=== PATIENT | male | born 1950 | race Caucasian/White ===

== ENCOUNTER 2024-04-16 13:14 | Inpatient (IN) | payer MEDICARE, BC, SELFPAY ==
[2024-04-16] VITALS (13 sets, daily range): BP systolic 90–136; BP diastolic 62–90; BMI 29.8; BMI 28.9
--- NOTE | 2024-04-16 06:50 | ED.GENMED ---
History of Present Illness
<Pranav Gonzalez MD, Resident - Last Filed: 04/16/24 10:24>
General
Chief Complaint: Fever
Time Seen by Provider: 04/16/24 06:42
History of Present Illness
History of Present Illness:
71-year-old male with a history of hyperlipidemia, hypertension, DVT presented to the ED with fever and confusion. Reports having fever for the past 3 days and was tested negative for COVID 19 at home. According to his he, woke up shivering
last night and was not coherent. The patient denies chest pain and shortness of breath. He denies cough, congestion, nausea, vomiting but states that his fever reached up to 101 F with chills last night and has experience headaches as well as with
fever. He he admits to having urgency and frequency with urination but denies pain or burning with urination. He reports of ongoing on and off diarrhea.
<Andre Munson MD - Last Filed: 04/16/24 10:24>
General
Source: patient
Exam Limitations: none
Nursing documentation reviewed up to this point in time: agreed with
Past History
<Andre Munson MD - Last Filed: 04/16/24 10:24>
Past History
ED Past Medical History: Asthma, HTN and Hypercholesterolemia
ED Past Surgical History: Orthopedic
Social History
Tobacco: Non-smoker
Alcohol: None
Drug: None
Personal:
Living: with family
Review of Systems
<Pranav Gonzalez MD, Resident - Last Filed: 04/16/24 10:24>
Review of Systems
Constitutional: Reports fever, fatigue and chills
Phy Exam
<Pranav Gonzalez MD, Resident - Last Filed: 04/16/24 10:24>
General Physical Exam
General Presentation: no apparent distress
Cardiovascular Exam
Cardiovascular Exam: regular rate/rhythm and no edema
Pulmonary Exam
Pulmonary Exam: lungs clear and no respiratory distress
Course
<Pranav Gonzalez MD, Resident - Last Filed: 04/16/24 10:24>
Orders/Labs/Results
Orders:
Orders
04/16/24 06:42
Electrocardiogram (*1) Urgent
Reason for Study: Other
Other Reason for Exam: Possible Sepsis
Cardiac Monitoring- Treatment ONCE
IV Insert/Care/Rem.- Treatment PRN
04/16/24 06:43
EKG- Treatment ONCE
04/16/24 06:48
Acetaminophen [Tylenol] 650 mg .ROUTE .STK-MED ONE
04/16/24 06:52
Complete Blood Count/With Diff Urgent
Comprehensive Metabolic Panel Urgent
Lactic Acid Q4H
Comment: ON ICE, CANCEL 2ND ORDER IF FIRST LACTIC ACID LEVEL <2
Urinalysis Reflex To Culture Urgent
Date Specimen was Collected: 04/16/24
Time Specimen was Collected: 06:43
Urine Microscopic Reflex Cult Urgent
Urine Culture Urgent
ANAI Source: U
Specimen Description:
Date Specimen was Collected: 04/16/24
Time Specimen was Collected: 06:43
04/16/24 06:54
Acetaminophen [Tylenol] 650 mg PO NOW STA
04/16/24 06:56
COVID-19 Antigen Urgent
Source: Nasal Swab
04/16/24 07:20
0.9% Sodium Chloride 250 ml [Nss] 250 ml IV BOLUS
04/16/24 07:28
Ondansetron HCl [Zofran] 4 mg PO NOW STA
04/16/24 07:29
Ondansetron Injectable [Zofran] 4 mg .ROUTE .STK-MED ONE
04/16/24 07:30
Ondansetron Injectable [Zofran] 4 mg IV NOW STA
04/16/24 07:58
Straight cath- Treatment ONCE
CR Chest - 2 Views Urgent
Comment:
Reason For Exam: fever/sob
04/16/24 08:00
Lidocaine 2% [Lidocaine Uro-Jet 2%] 1 syringe .ROUTE .STK-MED ONE
04/16/24 08:31
Stool Culture Urgent
ANAI Source: Feces/Stool
Specimen Description:
04/16/24 10:03
0.9% Sodium Chloride 1000 ml [Nss] 1,000 ml IV BOLUS
CefTRIAXone [Rocephin] 1,000 mg IV NOW STA
Abnormal Lab Results
04/16/24
06:52
RBC 4.27 L 10^6/uL
(4.70-6.10)
Hct 37.1 L %
(39.0-52.0)
Abs Immat Gran (auto) 0.1 H 10^3/uL
(0-0.05)
Absolute Lymphs (auto) 0.3 L 10^3/uL
(1.2-3.4)
Immature Gran % 1.1 H %
(0-0.5)
Neutrophils % 91.5 H %
(42.2-75.2)
Lymphocytes % 4.2 L %
(20.5-51.1)
Carbon Dioxide 20 L mmol/L
(22-30)
BUN 36 H mg/dl
(9-20)
Glucose 133 H mg/dl
(70-99)
Total Bilirubin 2.1 H mg/dl
(0.2-1.3)
Alkaline Phosphatase 146 H U/L
(38-126)
Total Protein 6.2 L g/dl
(6.3-8.2)
Urine Ketones Trace A
(Negative)
Ur Occult Blood Reflex 4+ A
(Negative)
Urine Nitrite (Reflex) Positive A
(Negative)
Urine Bilirubin 1+ A
(Negative)
Urine Urobilinogen 2+ A
(Neg - 1+)
Leukocyte Esterase Rfl 2+ A
(Negative)
Urine WBC (Reflex) 40-50 A /HPF
(0-5)
Urine Bacteria (Reflex) Many A
(Negative)
Urine Albumin (Reflex) 2+ A
(Neg - Trace)
04/16/24 06:52
04/16/24 06:52
Vital Signs
Initial and Last Documented VS:
Initial Vital Signs
Temp Pulse Resp BP Pulse Ox
101.9 F H 117 18 135/68 95
04/16/24 06:44 04/16/24 06:44 04/16/24 06:44 04/16/24 06:44 04/16/24 06:44
Last Documented Vital Signs
Temp Pulse Resp BP Pulse Ox
98.9 F 101 18 91/65 92
04/16/24 07:42 04/16/24 10:00 04/16/24 10:00 04/16/24 10:00 04/16/24 10:00
<Andre Munson MD - Last Filed: 04/16/24 10:24>
Orders/Labs/Results
Orders:
Orders
04/16/24 06:42
Electrocardiogram (*1) Urgent
Reason for Study: Other
Other Reason for Exam: Possible Sepsis
Cardiac Monitoring- Treatment ONCE
IV Insert/Care/Rem.- Treatment PRN
04/16/24 06:43
EKG- Treatment ONCE
04/16/24 06:48
Acetaminophen [Tylenol] 650 mg .ROUTE .STK-MED ONE
04/16/24 06:52
Complete Blood Count/With Diff Urgent
Comprehensive Metabolic Panel Urgent
Lactic Acid Q4H
Comment: ON ICE, CANCEL 2ND ORDER IF FIRST LACTIC ACID LEVEL <2
Urinalysis Reflex To Culture Urgent
Date Specimen was Collected: 04/16/24
Time Specimen was Collected: 06:43
Urine Microscopic Reflex Cult Urgent
Urine Culture Urgent
ANAI Source: U
Specimen Description:
Date Specimen was Collected: 04/16/24
Time Specimen was Collected: 06:43
04/16/24 06:54
Acetaminophen [Tylenol] 650 mg PO NOW STA
04/16/24 06:56
COVID-19 Antigen Urgent
Source: Nasal Swab
04/16/24 07:20
0.9% Sodium Chloride 250 ml [Nss] 250 ml IV BOLUS
04/16/24 07:28
Ondansetron HCl [Zofran] 4 mg PO NOW STA
04/16/24 07:29
Ondansetron Injectable [Zofran] 4 mg .ROUTE .STK-MED ONE
04/16/24 07:30
Ondansetron Injectable [Zofran] 4 mg IV NOW STA
04/16/24 07:58
Straight cath- Treatment ONCE
CR Chest - 2 Views Urgent
Comment:
Reason For Exam: fever/sob
04/16/24 08:00
Lidocaine 2% [Lidocaine Uro-Jet 2%] 1 syringe .ROUTE .STK-MED ONE
04/16/24 08:31
Stool Culture Urgent
ANAI Source: Feces/Stool
Specimen Description:
04/16/24 10:03
0.9% Sodium Chloride 1000 ml [Nss] 1,000 ml IV BOLUS
CefTRIAXone [Rocephin] 1,000 mg IV NOW STA
Abnormal Lab Results
04/16/24
06:52
RBC 4.27 L 10^6/uL
(4.70-6.10)
Hct 37.1 L %
(39.0-52.0)
Abs Immat Gran (auto) 0.1 H 10^3/uL
(0-0.05)
Absolute Lymphs (auto) 0.3 L 10^3/uL
(1.2-3.4)
Immature Gran % 1.1 H %
(0-0.5)
Neutrophils % 91.5 H %
(42.2-75.2)
Lymphocytes % 4.2 L %
(20.5-51.1)
Carbon Dioxide 20 L mmol/L
(22-30)
BUN 36 H mg/dl
(9-20)
Glucose 133 H mg/dl
(70-99)
Total Bilirubin 2.1 H mg/dl
(0.2-1.3)
Alkaline Phosphatase 146 H U/L
(38-126)
Total Protein 6.2 L g/dl
(6.3-8.2)
Urine Ketones Trace A
(Negative)
Ur Occult Blood Reflex 4+ A
(Negative)
Urine Nitrite (Reflex) Positive A
(Negative)
Urine Bilirubin 1+ A
(Negative)
Urine Urobilinogen 2+ A
(Neg - 1+)
Leukocyte Esterase Rfl 2+ A
(Negative)
Urine WBC (Reflex) 40-50 A /HPF
(0-5)
Urine Bacteria (Reflex) Many A
(Negative)
Urine Albumin (Reflex) 2+ A
(Neg - Trace)
04/16/24 06:52
04/16/24 06:52
Vital Signs
Initial and Last Documented VS:
Initial Vital Signs
Temp Pulse Resp BP Pulse Ox
101.9 F H 117 18 135/68 95
04/16/24 06:44 04/16/24 06:44 04/16/24 06:44 04/16/24 06:44 04/16/24 06:44
Last Documented Vital Signs
Temp Pulse Resp BP Pulse Ox
98.9 F 101 18 91/65 92
04/16/24 07:42 04/16/24 10:00 04/16/24 10:00 04/16/24 10:00 04/16/24 10:00
<Pranav Gonzalez MD, Resident - Last Filed: 04/16/24 10:24>
*Critical Care Note
Total Time (30-74mins, 75-104mins- exclusive of procedures): Not Applicable
<Pranav Gonzalez MD, Resident - Last Filed: 04/16/24 10:24>
Update Note
Update Note:
74-year-old male presented to the ED with fever and confusion. Patient is oriented to time place and person and is coherent.
Differential diagnosis #1 infection possible UTI #2 sepsis #3 pneumonia
Checking routine labs CBC CMP lactate levels as patient meets SIRS criteria. Checking UA to reflex culture to rule out UTI and COVID test. IV fluids given.
UA positive for infection. Started on IV Rocephin. Plan is to admit the patient with concerns for sepsis as the patient is hypotensive. Lactate is normal.
ED Attending Note
<Andre Munson MD - Last Filed: 04/16/24 10:24>
ED Attending Note
Patient seen and examined by attending physician: Yes
ED Attending Note:
Patient presents to ED secondary to 3-day history of fever, along with decreased appetite and multiple episodes of nonbloody, loose bowel movements. Denies coughing. Denies shortness of breath. Denies cough. Denies headache. Denies neck pain.
Denies abdominal pain. Denies nausea or vomiting. Denies recent change in medications or diet. Denies sick contact. Denies recent travel.
Physical Exam
General: no apparent distress, not acutely ill. febrile
Head: nc/at. eomi
Neck: supple. no meningeal signs.
Heart: s1/s2 regular rate and rhythm, no murmur. equal radial pulses.
Lungs: no acute respiratory distress. clear bilaterally
Abdomen: normal bowel sounds. not tender.
Neuro: alert and oriented. no focal neurological deficits
Skin: no rash
Psychiatric: well kept. interactive and cooperative
Extremities: no edema. no calf tenderness
History and exam consistent with sepsis, likely secondary to urinary tract infection. In light of persistent hypotension, patient will be admitted for further evaluation and treatment, including IV antibiotics and continue IV hydration.
-
Portions of this chart may have been created with voice recognition software.� Occasional wrong word or��sound alike� substitutions may have occurred due to the inherent limitations of voice recognition software.
Discharge Plan
Departure
Patient Disposition: Admit
Date of Disposition: 04/16/24
Time of Disposition: 10:23
Presentation/result/management discussed w/ accepting MD/DO: Hospitalist
Patient with high blood pressure during this ER visit?: No
Discharge Problem:
UTI (urinary tract infection)
Prescriptions:
No Action
multivitamin [Multi-Day] 1 EACH tablet
1 ea PO DAILY
atorvastatin 10 MG tablet
20 mg PO QPM
aspirin 81 MG tablet,delayed release (DR/EC)
81 mg PO DAILY
pantoprazole 40 MG tablet,delayed release (DR/EC)
40 mg PO DAILY
montelukast 10 MG tablet
10 mg PO DAILY
lisinopril 5 MG tablet
5 mg PO DAILY
fluticasone propionate [Aller-Olayinka] 15.8 ML spray,suspension
2 dose NS BID
loratadine [Allerclear] 10 MG tablet
10 mg PO DAILY
cholecalciferol (vitamin D3) [Vitamin D3] 4,000 UNIT capsule
5,000 unit PO DAILY
Referrals:
UNKNOWN - PT NOT,INTERVIEWE [Family Provider] -
Interventions
Interventions:
*Risk Screen - Suicide Last Done: 04/16/24 06:53
*General Assessment Last Done: 04/16/24 06:53
*Neglect/Abuse Screening Last Done: 04/16/24 06:53
ED- Fall Risk Assessment Last Done: 04/16/24 07:19
*ED COVID-19 Vaccine History Last Done: 04/16/24 07:27
ED- Neurological Assessment Last Done: 04/16/24 07:03
ED-Skin Assessment Last Done: 04/16/24 07:20
Discharge Date and Time
Print Language: AZERI
[2024-04-16] MEDS: TYLENOL 650 MG PO ×4 (06:55→20:32)
[2024-04-16 07:07] LABS: % Basophils 0.3 % (0-2); % Eosinophils 0.2 % (0-6); % Immature Granulocytes 1.1 % (0-0.5); % Lymphocytes 4.2 % (20.5-51.1); % Monocytes 2.7 % (1.7-9.3); % Neutrophils 91.5 % (42.2-75.2); Absolute Immature Granulocytes 0.1 10^3/uL (0-0.05); Absolute Lymphocytes 0.3 10^3/uL (1.2-3.4); Absolute Monocytes 0.2 10^3/uL (0.1-0.6); Absolute Neutrophils 5.7 10^3/uL (1.4-6.5); Hematocrit 37.1 % (39.0-52.0); Hemoglobin 13.2 g/dL (13.0-18.0); Mean Corp Hgb Conc. 35.6 g/dL (33.0-37.0); Mean Corpuscular Hgb 30.9 pg (27.0-31.0); Mean Corpuscular Volume 86.9 fL (80.0-94.0); Mean Platelet Volume 9.1 fL (7.4-10.4); Nucleated Red Blood Cells % 0 % (-); Platelet Count 144 10^3/uL (130-400); Red Blood Cell Count 4.27 10^6/uL (4.70-6.10); Red Cell Dist. Width 13.8 % (11.5-14.5); White Blood Cell Count 6.2 10^3/uL (4.8-10.8)
[2024-04-16 07:16] LABS: Lactic Acid 1.9 mmol/L (0.7-2.0)
[2024-04-16 07:17] LABS: ALT (SGPT) 37 U/L (0-50); AST (SGOT) 42 U/L (17-59); Albumin 3.6 g/dl (3.5-5.0); Alkaline Phosphatase 146 U/L (38-126); Blood Urea Nitrogen 36 mg/dl (9-20); Calcium 9.1 mg/dl (8.4-10.2); Carbon Dioxide 20 mmol/L (22-30); Chloride 107 mmol/L (98-107); Estimated Creatinine Clearance 49 ml/min; Glucose 133 mg/dl (70-99); Potassium 3.7 mmol/L (3.5-5.1); Sodium 137 mmol/L (135-145); Total Bilirubin 2.1 mg/dl (0.2-1.3); Total Protein 6.2 g/dl (6.3-8.2); eGFR 58.01
[2024-04-16] MEDS: NSS 250 IV (07:25)
[2024-04-16 07:28] LABS: COVID-19 Antigen Negative (Negative)
[2024-04-16] MEDS: ZOFRAN 4 MG IV (07:32)
[2024-04-16 08:41] LABS: Urine Albumin 2+ (Neg - Trace); Urine Bilirubin 1+ (Negative); Urine Character Slightly Cloudy (Clear); Urine Color Yellow; Urine Glucose Negative (Negative); Urine Ketone Trace (Negative); Urine Leukocyte 2+ (Negative); Urine Nitrite Positive (Negative); Urine Occult Blood 4+ (Negative); Urine Specific Gravity 1.015 (<1.030); Urine Urobilinogen 2+ (Neg - 1+)
[2024-04-16 09:59] LABS: Urine Bacteria Many (Negative); Urine Red Blood Cell 0-2 /HPF (0-2); Urine Squamous Cell 0-2 /LPF (Few); Urine White Cell 40-50 /HPF (0-5)
[2024-04-16] MEDS: ROCEPHIN 1000 MG IV (10:10)
[2024-04-16] MEDS: NSS 1000 IV (10:11)
--- NOTE | 2024-04-16 10:23 | HPS.HSE ---
Addendum entered and electronically signed by Liz Brown MD 04/16/24 13:20:
Mild QT prolongation
monitor on Tele
limit QT prolonging agents as possible
Original Note:
Family Physician
-
Family Physician: INTERVIEWE UNKNOWN - PT NOT
Chief Complaint
-
Fever
History of Present Illness
74 male hypertension hyperlipidemia DVT on Eliquis presents with fevers chills headache urinary urgency frequency intermittent diarrhea past 3 days. Denies dysuria chest pain palpitations shortness of breath coughing sneezing. ED eval notable for
fever 101.9 with associated tachycardia no significant leukocytosis lactic acidosis. Blood pressure low normotensive improved with IV fluid bolus. Urinalysis suggestive of UTI. EKG notes sinus tachycardia with associated QT prolongation. No acute
abn's on chest X-ray.
Medical History
Past Medical History
Past Medical History: Reports Other (As above)
Past Surgical History: Reports Orthopedic
Social History
Tobacco: Non-smoker
Alcohol: None
Drug: None
Personal:
Living: With Family
Employment: Retired
Family History
Family History: Not pertinent (Reviewed)
Allergies / Home Medications
Allergies reflects when Allergies were last updated in [employer] [facility]
Home Medications with original date entered in [employer] [facility]
Allergy/Medication List:
Allergies
Allergy/AdvReac Type Severity Reaction Status Date / Time
No Known Allergies Allergy Verified 07/15/22 10:18
Home Medications
lisinopril 5 mg tablet 5 mg PO DAILY Blood Pressure 09/06/16
loratadine 10 mg tablet (Allerclear) 10 mg PO DAILYPRN PRN allergies 09/06/16
acetaminophen 325 mg tablet (Tylenol) 650 mg PO Q4HPRN PRN fever 04/16/24
apixaban 5 mg tablet (Eliquis) 5 mg PO BID Blood Clot Prevention/Tx 04/16/24
atorvastatin 20 mg tablet 20 mg PO DAILY High Cholesterol 04/16/24
cholecalciferol (vitamin D3) 50 mcg (2,000 unit) tablet (Vitamin D3) 50 mcg PO DAILY Supplement 04/16/24
tamsulosin 0.4 mg capsule 0.4 mg PO DAILY Urinary Issue 04/16/24
therapeutic multivitamin 1 tab PO DAILY Supplement 04/16/24
tramadol 50 mg tablet 50 mg PO Q6HPRN PRN moderate pain 04/16/24
Review of Systems
-
A 12 point ROS was completed and negative except as noted: Yes
Constitutional: Reports Sleep Disturbance (As below)
Physical Exam
Vital Signs
Vital Signs
Temp Pulse Resp BP Pulse Ox
98.9 F 101 18 91/65 92
04/16/24 07:42 04/16/24 10:00 04/16/24 10:00 04/16/24 10:00 04/16/24 10:00
Physical Exam
General: Other (Possible)
Laboratory Results
-
04/16/24 06:52
04/16/24 06:52
Laboratory Results
Lactic Acid Cancelled 04/16/24 10:45
Total Bilirubin 2.1 mg/dl (0.2-1.3) H 04/16/24 06:52
AST 42 U/L (17-59) 04/16/24 06:52
ALT 37 U/L (0-50) 04/16/24 06:52
Alkaline Phosphatase 146 U/L (38-126) H 04/16/24 06:52
Impression/Plan
-
ROS
General: Reports Fever Chills
Neuro: Denies seizure shaking loss of consciousness dizziness vertigo
Psych: denies depression hallucinations confusion manic episodes
Endocrine: Reports polyuria Denies polydipsia polyphagia heat/cold intolerance
HEENT: Denies blindness visual disturbances epistaxis
Pulmonary: denies coughing hemoptysis sneezing sob dyspnea on exertion
Cardiovascular: denies chest pain palpitations leg swelling
Hematology: denies signs symptoms of anemia easy bruising/bleeding
Gastrointestinal: denies nausea vomiting diarrhea constipation hematemesis hematochezia melena
Genito-Urinary: denies retention incontinence dysuria reports urinary urgency frequency
Musculoskeletal: denies joint pain weakness
Dermatology: denies rash laceration bruising
Physical Exam
General: No pallor, cyanosis, or jaundice.
HEENT: Throat clear. PERRLA Normocephalic atraumatic
NECK: Supple. No JVD Carotid Bruits
RESPIRATORY: Lungs clear to auscultation. No crackles wheezes stridor
CVS: S1, S2 sinus tachy. No murmur, rub or gallop.
ABDOMEN: Soft, non-tender. No distension. BS+/normal.
EXTREMITIES: No peripheral cyanosis or edema.
LAWN MOWER REPAIRER: AOx3. No focal deficits.
IMPRESSION:
74 male hypertension hyperlipidemia DVT on Eliquis presents with fevers chills headache urinary urgency frequency intermittent diarrhea past 3 days. Denies dysuria chest pain palpitations shortness of breath coughing sneezing. ED eval notable for
fever 101.9 with associated tachycardia no significant leukocytosis lactic acidosis. Blood pressure low normotensive improved with IV fluid bolus. Urinalysis suggestive of UTI. EKG notes sinus tachycardia with associated QT prolongation. No acute
abn's on chest X-ray.
PLAN:
#Sepsis UTI
Tele admit
cont empiric ceftriaxone
follow urine cx
trend temp
prn Tylenol
#Hx HTN
BP currently low normotensive likely d/t infection as above
hold home lisinopril for now, resume if BP increases
Na restricted diet
#HLD
cont home statin
Low Cholesterol diet
#Hx DVT RLE
Follows regularly with brushing operator outpt every 6 months
cont home Eliquis
dvt ppx Eliquis
gi ppx Famotidine
meds reconciled and resumed as appropriate
Full Code
Discussed with patient and his son Jaison at bedside.
I spent a total of 75 minutes with the patient or on the floor. More than 50% of this time involved counseling and coordination of care.
[2024-04-16] MEDS: ULTRAM 50 MG PO (19:01)
[2024-04-16] MEDS: ELIQUIS 5 MG PO (20:28)
[2024-04-17] MEDS: TYLENOL 650 MG PO ×3 (02:01→18:34)
[2024-04-17 03:39] VITALS: BP 135/86
[2024-04-17 05:53] LABS: Hematocrit 35.8 % (39.0-52.0); Hemoglobin 12.7 g/dL (13.0-18.0); Mean Corp Hgb Conc. 35.5 g/dL (33.0-37.0); Mean Corpuscular Volume 87.3 fL (80.0-94.0); Mean Platelet Volume 9.3 fL (7.4-10.4); Platelet Count 158 10^3/uL (130-400); White Blood Cell Count 9.4 10^3/uL (4.8-10.8)
[2024-04-17 06:16] LABS: Blood Urea Nitrogen 27 mg/dl (9-20); Carbon Dioxide 24 mmol/L (22-30); Chloride 104 mmol/L (98-107); Estimated Creatinine Clearance 58 ml/min; Glucose 108 mg/dl (70-99); Magnesium 1.8 mg/dl (1.6-2.3); Potassium 4.2 mmol/L (3.5-5.1); Sodium 136 mmol/L (135-145); eGFR > 60.00
[2024-04-17 07:00] VITALS: BP 130/84
--- NOTE | 2024-04-17 07:53 | W.PN.HOSP.TC ---
Addendum entered and electronically signed by Liz Brown MD 04/18/24 07:52:
Possible Acute Metabolic Encephalopathy since resolved
Original Note:
Today's Communication/Plan
-
cont abx
stool studies
pain control
abd XR for possible overflow incontinence
follow urine culture
Assessment / Plan
Assessment / Plan
Physical Exam
General: No pallor, cyanosis, or jaundice.
HEENT: Throat clear. PERRLA Normocephalic atraumatic
NECK: Supple. No JVD Carotid Bruits
RESPIRATORY: Lungs clear to auscultation. No crackles wheezes stridor
CVS: S1, S2 sinus tachy. No murmur, rub or gallop.
ABDOMEN: Soft, non-tender. No distension. BS+/normal.
EXTREMITIES: No peripheral cyanosis or edema.
PROTECTIVE SERVICES OFFICER: AOx3. No focal deficits.
IMPRESSION:
74 male hypertension hyperlipidemia DVT on Eliquis presents with fevers chills headache urinary urgency frequency intermittent diarrhea past 3 days. Denies dysuria chest pain palpitations shortness of breath coughing sneezing. ED eval notable for
fever 101.9 with associated tachycardia no significant leukocytosis lactic acidosis. Blood pressure low normotensive improved with IV fluid bolus. Urinalysis suggestive of UTI. EKG notes sinus tachycardia with associated QT prolongation. No acute
abn's on chest X-ray.
PLAN:
#Sepsis UTI
Tele admit
cont empiric ceftriaxone
follow urine cx
trend temp
prn Tylenol
probiotic
#bowel/urinary incontinence
denies numbness/weakness
check abd XR for possible overflow incontinence
stool studies
#Hx HTN
BP currently low normotensive likely d/t infection as above
hold home lisinopril for now, resume if BP increases
Na restricted diet
#HLD
cont home statin
Low Cholesterol diet
#Hx DVT RLE
Follows regularly with pump attendant outpt every 6 months
cont home Eliquis
Mild QT prolongation
monitor on Tele
limit QT prolonging agents as possible
dvt ppx Eliquis
gi ppx Famotidine
meds reconciled and resumed as appropriate
Full Code
Discussed with patient, patient's Ingrid, and his daughter Pete at bedside
I spent a total of 55 minutes with the patient or on the floor. More than 50% of this time involved counseling and coordination of care.
Anticipated Discharge: 24 - 48 hours
Subjective/Interval History
-
Date of Service: April 17, 2024
Reports bowel urinary incontinence. Denies dysuria.
Objective Data
-
Labs:
Laboratory Results
04/17/24
05:35
WBC 9.4
Hgb 12.7 L
Hct 35.8 L
Plt Count 158
Sodium 136
Potassium 4.2
Chloride 104
Carbon Dioxide 24
BUN 27 H
Creatinine 1.1
Glucose 108 H
Calcium 9.0
Vital Signs:
Vital Signs
Temp Pulse Resp BP Pulse Ox
99.4 F 66 19 130/84 98
04/17/24 07:00 04/17/24 07:00 04/17/24 07:00 04/17/24 07:00 04/17/24 07:00
I&O
04/16/24 04/17/24 04/18/24
06:59 06:59 06:59
Intake Total 1660 / 1660
Output Total 320 / 320
Balance 1340 / 1340
[2024-04-17] MEDS: ELIQUIS 5 MG PO ×2 (07:54→20:19)
[2024-04-17] MEDS: PEPCID 20 MG PO (07:54)
[2024-04-17] MEDS: VITAMIN D3 (cholecalciferol) 50 MCG PO (07:54)
[2024-04-17] MEDS: FLOMAX 0.4 MG PO (07:54)
[2024-04-17] MEDS: LIPITOR 20 MG PO (08:00)
[2024-04-17] MEDS: THERAGRAN 1 TABLET PO (08:00)
[2024-04-17] MEDS: STERILE WATER FOR INJECTION 10 ML IV (10:34)
[2024-04-17] MEDS: ROCEPHIN 1000 MG IV (10:34)
[2024-04-17 11:00] VITALS: BP 124/71
[2024-04-17] MEDS: PROTONIX 40 MG PO (13:10)
[2024-04-17] MEDS: TORADOL 15 MG IV (13:11)
[2024-04-17] MEDS: FLORASTOR 250 MG PO (13:11)
--- NOTE | 2024-04-17 13:32 | PN.CDI ---
CDI
- -
CDI:
Physician Documentation Request
Admit Date: 04/16/24 13:14
Dear Doctor Stephanie,
Clinical Indicators:
EMS report, (06:10 - 06:23) [facility] Verbal: Confused
ED report, 'presented to the ED with fever and confusion....According to his he, woke up shivering last night and was not coherent.'
H & P, 'Sepsis UTI'
Based on the above, could you clarify which, if any of the following, is the most likely etiology of the confusion/altered mental status.
Acute Metabolic Encephalopathy
Confusion only
Other, please specify
Use of terms such as suspected, likely, concern for, or probable (associated with a specific diagnosis that is being evaluated, monitored, or treated as if it exists) are acceptable and can be coded in the inpatient setting, when documented at the
time of discharge.
Thank you,
Chloe Dunham RN BSN
CDI Specialist
available via tiger text
Please use your independent medical judgment in providing your response.
[2024-04-17 15:00] VITALS: BP 143/74
--- NOTE | 2024-04-17 15:41 | CM ---
Pt admitted with Sepsis
Met with pt and his at bedside
Pt lives in a in-law suite attached to daughter and son-in-law's home
Independent, driving til recently
DME - hearing aids
SNF - no past hx
HH - [facility] in past
PCP - Had PCP in [place]; plans to obtain new PCP
Pharm - [facility]
CM will follow for d/c planning
Plan - anticipate home no needs when medically ready
[2024-04-17 19:26] VITALS: BP 111/68
[2024-04-17 23:20] VITALS: BP 123/70
[2024-04-18 03:36] VITALS: BP 159/95
[2024-04-18] MEDS: TYLENOL 650 MG PO ×2 (06:00→12:26)
[2024-04-18 06:07] LABS: Hematocrit 35.2 % (39.0-52.0); Hemoglobin 12.6 g/dL (13.0-18.0); Mean Corp Hgb Conc. 35.8 g/dL (33.0-37.0); Mean Corpuscular Hgb 30.4 pg (27.0-31.0); Mean Platelet Volume 9.3 fL (7.4-10.4); Platelet Count 176 10^3/uL (130-400); Red Blood Cell Count 4.14 10^6/uL (4.70-6.10); White Blood Cell Count 9.9 10^3/uL (4.8-10.8)
[2024-04-18 06:31] LABS: Blood Urea Nitrogen 25 mg/dl (9-20); Calcium 8.8 mg/dl (8.4-10.2); Carbon Dioxide 25 mmol/L (22-30); Chloride 103 mmol/L (98-107); Estimated Creatinine Clearance 58 ml/min; Glucose 108 mg/dl (70-99); Magnesium 1.9 mg/dl (1.6-2.3); Phosphorus 2.5 mg/dl (2.5-4.5); Potassium 4.4 mmol/L (3.5-5.1); Sodium 135 mmol/L (135-145); eGFR > 60.00
[2024-04-18 07:00] VITALS: BP 125/82
[2024-04-18] MEDS: PROTONIX 40 MG PO (07:34)
[2024-04-18] MEDS: VITAMIN D3 (cholecalciferol) 50 MCG PO (07:34)
[2024-04-18] MEDS: ELIQUIS 5 MG PO ×2 (07:34→19:40)
[2024-04-18] MEDS: FLOMAX 0.4 MG PO (07:34)
[2024-04-18] MEDS: THERAGRAN 1 TABLET PO (07:34)
[2024-04-18] MEDS: LIPITOR 20 MG PO (07:34)
--- NOTE | 2024-04-18 07:52 | W.PN.HOSP.TC ---
Today's Communication/Plan
-
IV abx switched to PO
pain control
once Fioricet
baclofen
Assessment / Plan
Assessment / Plan
Physical Exam
General: No pallor, cyanosis, or jaundice.
HEENT: Throat clear. PERRLA Normocephalic atraumatic
NECK: Supple. No JVD Carotid Bruits
RESPIRATORY: Lungs clear to auscultation. No crackles wheezes stridor
CVS: S1, S2 sinus tachy. No murmur, rub or gallop.
ABDOMEN: Soft, non-tender. No distension. BS+/normal.
EXTREMITIES: No peripheral cyanosis or edema.
WELDING MACHINE OPERATOR ELECTROSLAG: AOx3. No focal deficits.
IMPRESSION:
74 male hypertension hyperlipidemia DVT on Eliquis presents with fevers chills headache urinary urgency frequency intermittent diarrhea past 3 days. Denies dysuria chest pain palpitations shortness of breath coughing sneezing. ED eval notable for
fever 101.9 with associated tachycardia no significant leukocytosis lactic acidosis. Blood pressure low normotensive improved with IV fluid bolus. Urinalysis suggestive of UTI. EKG notes sinus tachycardia with associated QT prolongation. No acute
abn's on chest X-ray.
PLAN:
#Sepsis UTI
Tele admit
urine cx appreciated E. coli pansensitive
cont empiric ceftriaxone switched to Augmentin
trend temp
prn Tylenol
probiotic
#bowel/urinary incontinence
denies numbness/weakness
checked abd XR for possible overflow incontinence, negative
Low residue diet
incontinence since improved
#Persistent headache with associate neck pain
#Hx cervical DDD has pending outpt appt for epidural
once Fioricet
baclofen started (fall precautions)
checking CT head CTA head/neck
#Hx HTN
BP currently low normotensive likely d/t infection as above
hold home lisinopril for now, resume if BP increases
Na restricted diet
#HLD
cont home statin
Low Cholesterol diet
#Hx DVT RLE
Follows regularly with manager tax outpt every 6 months
cont home Eliquis
Mild QT prolongation
monitor on Tele
limit QT prolonging agents as possible
dvt ppx Eliquis
gi ppx Famotidine
meds reconciled and resumed as appropriate
Full Code
Discussed with patient, patient's Ingrid, and his daughter Pete at bedside
I spent a total of 55 minutes with the patient or on the floor. More than 50% of this time involved counseling and coordination of care.
Anticipated Discharge: 24 - 48 hours
Subjective/Interval History
-
Date of Service: April 18, 2024
Reports improvement in incontinence. Reports feeling well. No diarrhea. Patient/family reported significant headache with associate neck pain (has pending outpatient appt for epidural injection).
Objective Data
-
Labs:
Laboratory Results
04/18/24
05:24
WBC 9.9
Hgb 12.6 L
Hct 35.2 L
Plt Count 176
Sodium 135
Potassium 4.4
Chloride 103
Carbon Dioxide 25
BUN 25 H
Creatinine 1.1
Glucose 108 H
Calcium 8.8
Vital Signs:
Vital Signs
Temp Pulse Resp BP Pulse Ox
97.9 F 93 19 159/95 95
04/18/24 03:36 04/18/24 03:36 04/18/24 03:36 04/18/24 03:36 04/18/24 03:36
I&O
04/17/24 04/18/24 04/19/24
06:59 06:59 06:59
Intake Total 1660 / 1660 840 / 840
Output Total 320 / 320
Balance 1340 / 1340 840 / 840
[2024-04-18] MEDS: FLORASTOR 250 MG PO (08:32)
[2024-04-18] MEDS: STERILE WATER FOR INJECTION 10 ML IV (10:00)
[2024-04-18] MEDS: ROCEPHIN 1000 MG IV (10:00)
[2024-04-18 11:00] VITALS: BP 152/89
--- NOTE | 2024-04-18 12:05 | PTCARENOTE ---
Pt transferred to room 324-1. Pt AAOX3. All belongings with pt. Pt reoriented to staff and environment. Family aware of transfer to new room.
[2024-04-18] MEDS: AUGMENTIN 875 MG/125 MG 1 TABLET PO ×2 (12:26→19:40)
[2024-04-18] MEDS: ULTRAM 50 MG PO (15:28)
[2024-04-18 15:36] VITALS: BP 124/74
[2024-04-18] MEDS: MIRALAX 17 GRAMS PO (17:26)
[2024-04-18] MEDS: LIORESAL 5 MG PO (17:58)
[2024-04-18] MEDS: FIORICET 2 TAB PO (17:58)
[2024-04-18 19:35] VITALS: BP 125/80
[2024-04-18 23:23] VITALS: BP 130/79
[2024-04-19] MEDS: ULTRAM 50 MG PO ×2 (02:55→10:14)
[2024-04-19 03:06] VITALS: BP 144/84
[2024-04-19 06:26] LABS: Hematocrit 37.3 % (39.0-52.0); Hemoglobin 13.1 g/dL (13.0-18.0); Mean Corp Hgb Conc. 35.1 g/dL (33.0-37.0); Mean Corpuscular Hgb 31.1 pg (27.0-31.0); Mean Corpuscular Volume 88.6 fL (80.0-94.0); Mean Platelet Volume 8.9 fL (7.4-10.4); Platelet Count 205 10^3/uL (130-400); Red Blood Cell Count 4.21 10^6/uL (4.70-6.10); Red Cell Dist. Width 14.1 % (11.5-14.5); White Blood Cell Count 9.3 10^3/uL (4.8-10.8)
--- NOTE | 2024-04-19 07:06 | W.PN.HOSP.TC ---
Today's Communication/Plan
-
discharge
Assessment / Plan
Assessment / Plan
Physical Exam
General: No pallor, cyanosis, or jaundice.
HEENT: Throat clear. PERRLA Normocephalic atraumatic
NECK: Supple. No JVD Carotid Bruits
RESPIRATORY: Lungs clear to auscultation. No crackles wheezes stridor
CVS: S1, S2 sinus tachy. No murmur, rub or gallop.
ABDOMEN: Soft, non-tender. No distension. BS+/normal.
EXTREMITIES: No peripheral cyanosis or edema.
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 No focal deficits.
IMPRESSION:
74 male hypertension hyperlipidemia DVT on Eliquis presents with fevers chills headache urinary urgency frequency intermittent diarrhea past 3 days. Denies dysuria chest pain palpitations shortness of breath coughing sneezing. ED eval notable for
fever 101.9 with associated tachycardia no significant leukocytosis lactic acidosis. Blood pressure low normotensive improved with IV fluid bolus. Urinalysis suggestive of UTI. EKG notes sinus tachycardia with associated QT prolongation. No acute
abn's on chest X-ray.
PLAN:
#Sepsis UTI
Tele admit
urine cx appreciated E. coli pansensitive
cont empiric ceftriaxone switched to Augmentin tolerating well, planning for total 7 days abx 04/16-04/22
afebrile >48H no significant leukocytosis
prn Tylenol
probiotic
#bowel/urinary incontinence
denies numbness/weakness
checked abd XR for possible overflow incontinence, negative
Low residue diet
incontinence since improved but now has constipation, laxatives provided
#Persistent headache with associate neck pain
#Hx cervical DDD has pending outpt appt for epidural
once Fioricet
baclofen started (fall precautions)
CT head CTA head/neck appreciated no acute abn's
suspect likely tension headache exacerbated/triggered by chronic neck pain
bengay-like cream started back of neck and b/l corners neck and shoulder
#Hx HTN
BP currently low normotensive likely d/t infection as above
home lisinopril held due to above, BP increasing, ok to resume on discharge
Na restricted diet
#HLD
cont home statin
Low Cholesterol diet
#Hx DVT RLE
Follows regularly with [facility] outpt every 6 months
cont home Eliquis
Mild QT prolongation
monitor on Tele
limit QT prolonging agents as possible
dvt ppx Eliquis
gi ppx Famotidine
meds reconciled and resumed as appropriate
Full Code
Medically stable for discharge home with outpatient follow up recommendations
Discussed with patient, patient's Ingrid, and his daughter Pete at bedside
Total Time Preparing Discharge __50 minutes including examination of the patient, summary of the hospital stay, instructions for continuing care to all relevant caregivers; and preparation of discharge records, prescriptions, and referral
forms if necessary.
Anticipated Discharge: Today
Subjective/Interval History
-
Date of Service: April 19, 2024
Seen and examined at bedside in no acute distress sitting up comfortably in chair. Continues to report constipation and intermittent headaches with associate neck pain (likely tension headache exacerbated/triggered by neck pain). Otherwise patient
reports feeling well, eager to go home. Family Ingrid and daughter Pete present during evaluation.
Objective Data
-
Labs:
Laboratory Results
04/19/24
06:09
WBC 9.3
Hgb 13.1
Hct 37.3 L
Plt Count 205
Sodium Pending
Potassium Pending
Chloride Pending
Carbon Dioxide Pending
BUN Pending
Creatinine Pending
Glucose Pending
Calcium Pending
Vital Signs:
Vital Signs
Temp Pulse Resp BP Pulse Ox
98.3 F 79 16 144/84 98
04/19/24 03:06 04/19/24 03:06 04/19/24 03:06 04/19/24 03:06 04/19/24 03:06
I&O
04/18/24 04/19/24 04/20/24
06:59 06:59 06:59
Intake Total 840 / 840 1140 / 1140
Output Total 100 / 100
Balance 840 / 840 1040 / 1040
[2024-04-19 07:10] LABS: Blood Urea Nitrogen 20 mg/dl (9-20); Carbon Dioxide 26 mmol/L (22-30); Chloride 101 mmol/L (98-107); Estimated Creatinine Clearance 64 ml/min; Glucose 112 mg/dl (70-99); Magnesium 1.9 mg/dl (1.6-2.3); Phosphorus 3.2 mg/dl (2.5-4.5); Potassium 4.4 mmol/L (3.5-5.1); Sodium 137 mmol/L (135-145); eGFR > 60.00
[2024-04-19 07:32] VITALS: BP 130/88
[2024-04-19] MEDS: LIPITOR 20 MG PO (07:39)
[2024-04-19] MEDS: AUGMENTIN 875 MG/125 MG 1 TABLET PO (07:39)
[2024-04-19] MEDS: VITAMIN D3 (cholecalciferol) 50 MCG PO (07:39)
[2024-04-19] MEDS: ELIQUIS 5 MG PO (07:39)
[2024-04-19] MEDS: LIORESAL 5 MG PO ×2 (07:39→15:50)
[2024-04-19] MEDS: FLOMAX 0.4 MG PO (07:39)
[2024-04-19] MEDS: FLORASTOR 250 MG PO (07:39)
[2024-04-19] MEDS: PROTONIX 40 MG PO (07:39)
[2024-04-19] MEDS: THERAGRAN 1 TABLET PO (07:39)
[2024-04-19 11:17] VITALS: BP 144/83
[2024-04-19] MEDS: SENOKOT-S 1 TABLET PO (11:22)
[2024-04-19] MEDS: DULCOLAX 10 MG RECTAL (11:22)
[2024-04-19] MEDS: BenGay-Like 1 APPLIC TOPICAL ×2 (12:08→13:37)
[2024-04-19 15:30] VITALS: BP 140/80
--- NOTE | 2024-04-19 16:15 | W.DCSUMMARY ---
Discharge Summary
Discharge Data
Date of Admission: 04/16/24
Date of Discharge: 04/19/24
-
Pending Results: No
Discharge Plan
-
Patient Disposition: Home (Routine Discharge)
Discharge Diagnosis/Procedures: Sepsis Urinary Tract Infection
Metabolic Encephalopathy, due to above infection, Resolved
Likely Tension Headaches exacerbated/triggered by chronic neck pain
Hypertension
Hyperlipidemia
History Deep Vein Thrombosis on Eliquis
Condition: Good
Diet: Low Cholesterol and 2 Gram Sodium
Activity: As tolerated
Driving Restrictions: Not until seen by your Dr
Bathing Restrictions: None
Activity Restrictions/Additional Instructions:
Please follow up with primary care provider in 1 week of discharge.
Augmentin has been prescribed to continue through 04/22 Mon to complete treatment for UTI.
Probiotic has been prescribed to promote gut health while on broad spectrum antibiotic. Probiotics are available over the counter.
Stool softeners have been prescribed as needed for constipation, this is also available over the counter.
Musculoskeletal neck pain can be treated with bengay or bengay-like cream, these are available over the counter as well.
Baclofen has been prescribed as needed for neck pain/muscle stiffness.
Please take medications as prescribed/recommended and follow up with primary care provider and/or other healthcare provider involved in your care for refills and/or further adjustment to your medication regimen as necessary.
Instructions: Urinary Tract Infection - Men
Referrals:
UNKNOWN - PT NOT,INTERVIEWE [Family Provider] -
Prescriptions:
New
amoxicillin-pot clavulanate 875-125 mg Tablet
1 tab PO Q12 Qty: 7 0RF
Rx Instructions:
Last day of antibiotics is 04/22 Mon then stop
sennosides-docusate sodium [Stool Softener-Laxative] 8.6-50 mg Tablet
1 tab PO BIDPRN PRN (Reason: Constipation) Qty: 14 0RF
Saccharomyces boulardii 250 mg Capsule
250 mg PO DAILY 3 Days Qty: 3 0RF
baclofen 5 mg Tablet
5 mg PO TIDPRN PRN (Reason: neck pain muscle stiffness spasm) Qty: 20 0RF
Continued
lisinopril 5 MG tablet
5 mg PO DAILY
loratadine [Allerclear] 10 MG tablet
10 mg PO DAILYPRN PRN (Reason: allergies)
acetaminophen [Tylenol] 325 mg Tablet
650 mg PO Q4HPRN PRN (Reason: fever)
atorvastatin 20 mg Tablet
20 mg PO DAILY
therapeutic multivitamin Tablet
1 tab PO DAILY
tramadol 50 mg Tablet
50 mg PO Q6HPRN PRN (Reason: moderate pain)
tamsulosin 0.4 mg Capsule
0.4 mg PO DAILY
cholecalciferol (vitamin D3) [Vitamin D3] 50 mcg (2,000 unit) Tablet
50 mcg PO DAILY
Eliquis 5 mg Tablet
5 mg PO BID
Discharge Orders:
Discharge Patient (As Directed); Ordered 04/19/24
Ordered By: Liz Brown
Discharge Date and Time
Print Language: K[place]ILI
== END 2024-04-19 17:18 | disposition home or self-care (01) | DRG 871 ==
LOC: 3 WEST ACU 13:14
PROVIDERS: ADMITTING PHYSICIAN Internal Medicine; EMERGENCY PHYSICIAN Emergency Medicine
DX: A41.9 Sepsis, unspecified organism (principal); G93.41 Metabolic encephalopathy; N39.0 Urinary tract infection, site not specified; I10 Essential (primary) hypertension; B96.20 Unspecified Escherichia coli [E. coli] as the cause of diseases classified elsewhere; E78.5 Hyperlipidemia, unspecified; G44.209 Tension-type headache, unspecified, not intractable; G89.29 Other chronic pain; M50.30 Other cervical disc degeneration, unspecified cervical region; R94.31 Abnormal electrocardiogram [ECG] [EKG]; R19.7 Diarrhea, unspecified; R32 Unspecified urinary incontinence; K59.00 Constipation, unspecified; Z79.01 Long term (current) use of anticoagulants; Z79.899 Other long term (current) drug therapy; Z86.718 Personal history of other venous thrombosis and embolism
CPT/HCPCS: 70496; 70498; 71046; 74019; 80048; 80053; 81003; 81015; 83605; 83735; 84100; 85025; 85027; 87086; 87088; 87186; 87811; 93005; 96361; 96374; 99285; Q9967

== ENCOUNTER 2024-05-16 18:31 | Emergency (ER) | payer MEDICARE, BC, SELFPAY ==
[2024-05-16 18:31] VITALS: BMI 29.3
[2024-05-16 18:39] VITALS: BP 134/73
[2024-05-16 18:56] LABS: % Basophils 0.3 % (0-2); % Immature Granulocytes 0.6 % (0-0.5); % Lymphocytes 28.2 % (20.5-51.1); % Monocytes 10.8 % (1.7-9.3); % Neutrophils 59.1 % (42.2-75.2); Absolute Eosinophils 0.1 10^3/uL (0-0.7); Absolute Immature Granulocytes 0.1 10^3/uL (0-0.05); Absolute Lymphocytes 2.2 10^3/uL (1.2-3.4); Absolute Monocytes 0.9 10^3/uL (0.1-0.6); Absolute Neutrophils 4.6 10^3/uL (1.4-6.5); Hematocrit 33.9 % (39.0-52.0); Hemoglobin 12.1 g/dL (13.0-18.0); Mean Corp Hgb Conc. 35.7 g/dL (33.0-37.0); Mean Corpuscular Hgb 30.6 pg (27.0-31.0); Mean Corpuscular Volume 85.8 fL (80.0-94.0); Mean Platelet Volume 8.5 fL (7.4-10.4); Nucleated Red Blood Cells % 0 % (-); Platelet Count 225 10^3/uL (130-400); Red Blood Cell Count 3.95 10^6/uL (4.70-6.10); White Blood Cell Count 7.9 10^3/uL (4.8-10.8)
[2024-05-16 19:00] LABS: Urine Albumin Negative (Neg - Trace); Urine Bilirubin Negative (Negative); Urine Character Clear (Clear); Urine Color Yellow; Urine Glucose Negative (Negative); Urine Ketone Negative (Negative); Urine Leukocyte 1+ (Negative); Urine Nitrite Negative (Negative); Urine Occult Blood Trace (Negative); Urine Specific Gravity 1.015 (<1.030); Urine Urobilinogen Negative (Neg - 1+)
[2024-05-16 19:08] LABS: Urine Squamous Cell 0-2 /LPF (Few)
[2024-05-16 19:13] LABS: Lactic Acid 0.9 mmol/L (0.7-2.0)
[2024-05-16 19:15] LABS: ALT (SGPT) 30 U/L (0-50); AST (SGOT) 26 U/L (17-59); Albumin 3.9 g/dl (3.5-5.0); Alkaline Phosphatase 84 U/L (38-126); Blood Urea Nitrogen 27 mg/dl (9-20); Calcium 9.2 mg/dl (8.4-10.2); Carbon Dioxide 24 mmol/L (22-30); Chloride 106 mmol/L (98-107); Glucose 129 mg/dl (70-99); Sodium 141 mmol/L (135-145); Total Bilirubin 0.5 mg/dl (0.2-1.3); Total Protein 6.6 g/dl (6.3-8.2); eGFR > 60.00
[2024-05-16 20:00] VITALS: BP 121/77
--- NOTE | 2024-05-16 20:23 | ED.GENMED ---
History of Present Illness
General
Chief Complaint: Male Genito-Urinary Symptoms
Time Seen by Provider: 05/16/24 19:39
History of Present Illness
History of Present Illness:
74-year-old male with history of DVT on Eliquis, hypertension, hyperlipidemia presenting to the emergency department for concern of fever or urinary symptoms. Patient reports recent hospitalization for sepsis from urinary source. On review of EMR,
patient was admitted from 04/16 to 04/19 at which time he did meet sepsis criteria for urinary tract infection, which grew E. coli. Patient was initially treated with ceftriaxone, switched to Augmentin. Patient notes that he was feeling better,
however 4 days ago again started to have pressure with urination and increased frequency. He went to his urologist, had his urine checked, however results are not back. He was started on cefdinir. Overall reports that his urinary symptoms are
improving, however tonight he was having a headache and his daughter checked his temperature and reports that he had a fever. He did not take any Tylenol or Motrin prior to arrival. Denies any abdominal pain. Denies chest pain or difficulty
breathing. Denies any hematuria. Denies additional acute medical complaints.
Past History
Past History
ED Past Medical History: Asthma, HTN and Hypercholesterolemia
ED Past Surgical History: Orthopedic
Social History
Tobacco: Non-smoker
Alcohol: None
Drug: None
Personal:
Living: with family
Phy Exam
Physical Exam
Physical Exam:
General: Well-appearing, no clinical signs of dehydration, nontoxic and in no acute distress
HEENT: protecting airway
Neck: appears supple
CV: Normal heart rate, regular rhythm
Resp: No accessory muscle use, no increased work of breathing, lungs clear to auscultation bilaterally
Abd: Soft and non-distended, no tenderness to palpation
Extremities: No deformities, no swelling, no erythema
Neuro: alert, no focal neurologic deficit
: deferred
Rectal: deferred
Psych: Normal affect
Skin: Intact
Course
Orders/Labs/Results
Orders:
Orders
05/16/24 18:53
Complete Blood Count/With Diff Urgent
Comprehensive Metabolic Panel Urgent
Lactate Level [Lactic Acid] Urgent
05/16/24 18:58
Urinalysis Reflex To Culture Urgent
Date Specimen was Collected: 05/16/24
Time Specimen was Collected: 18:44
Urine Microscopic Reflex Cult Urgent
Urine Culture Urgent
ANAI Source: U
Specimen Description:
Date Specimen was Collected: 05/16/24
Time Specimen was Collected: 18:44
Abnormal Lab Results
05/16/24 05/16/24
18:53 18:58
RBC 3.95 L 10^6/uL
(4.70-6.10)
Hgb 12.1 L g/dL
(13.0-18.0)
Hct 33.9 L %
(39.0-52.0)
Abs Immat Gran (auto) 0.1 H 10^3/uL
(0-0.05)
Absolute Monos (auto) 0.9 H 10^3/uL
(0.1-0.6)
Immature Gran % 0.6 H %
(0-0.5)
Monocytes % 10.8 H %
(1.7-9.3)
BUN 27 H mg/dl
(9-20)
Glucose 129 H mg/dl
(70-99)
Ur Occult Blood Reflex Trace A
(Negative)
Leukocyte Esterase Rfl 1+ A
(Negative)
Urine RBC 7-10 A /HPF
(0-2)
Urine WBC (Reflex) 11-15 A /HPF
(0-5)
05/16/24 18:53
05/16/24 18:53
Vital Signs
Initial and Last Documented VS:
Initial Vital Signs
Temp Pulse Resp BP Pulse Ox
99.3 F 81 18 134/73 97
05/16/24 18:39 05/16/24 18:39 05/16/24 18:39 05/16/24 18:39 05/16/24 18:39
Last Documented Vital Signs
Temp Pulse Resp BP Pulse Ox
99.3 F 75 18 121/77 96
05/16/24 18:39 05/16/24 20:00 05/16/24 20:00 05/16/24 20:00 05/16/24 20:00
MDM/Problems Addressed
MDM/Problems Addressed:
74-year-old male with history of DVT on Eliquis, hypertension, hyperlipidemia presenting to the emergency department for concern of urinary tract infection and fever. Vital signs on arrival are normal.
On exam, patient is well-appearing, no acute distress or discomfort. Benign abdominal exam, no focal reproducible tenderness. Patient is nontoxic, afebrile. Temperature rechecked in examination room, remains afebrile, and did not have any
antipyretics prior to arrival. At this time without suspicion for present fever. Patient had laboratory analysis prior to my assessment, no leukocytosis. No current criteria for SIRS or sepsis. Urinalysis obtained, trace leukocytes, however
patient is already on antibiotics. He notes that his symptoms are overall improving with the cefdinir. On review of EMR, recent hospitalization for sepsis from UTI. Urine grew E. coli, however was pansensitive. Suspect that the cefdinir is
likely appropriate and working for his urinary tract infection. Given hemodynamic stability and unremarkable laboratory analysis, feel that he is stable for discharge with continued outpatient urology follow-up. Advised continuing cefdinir to its
completion. Patient and family in agreement with plan. Return precautions discussed and patient verbalized understanding
*Critical Care Note
Total Time (30-74mins, 75-104mins- exclusive of procedures): Not Applicable
ED Attending Note
-
Portions of this chart may have been created with voice recognition software.� Occasional wrong word or��sound alike� substitutions may have occurred due to the inherent limitations of voice recognition software.
Discharge Plan
Departure
Patient Disposition: Home (Routine Discharge)
Date of Disposition: 05/16/24
Time of Disposition: 20:45
Patient with high blood pressure during this ER visit?: No
Condition: Good
Discharge Problem:
UTI (urinary tract infection)
Instructions: Urinary Tract Infection - Men
Prescriptions:
No Action
lisinopril 5 MG tablet
5 mg PO DAILY
loratadine [Allerclear] 10 MG tablet
10 mg PO DAILYPRN PRN (Reason: allergies)
acetaminophen [Tylenol] 325 mg Tablet
650 mg PO Q4HPRN PRN (Reason: fever)
atorvastatin 20 mg Tablet
20 mg PO DAILY
therapeutic multivitamin Tablet
1 tab PO DAILY
tramadol 50 mg Tablet
50 mg PO Q6HPRN PRN (Reason: moderate pain)
tamsulosin 0.4 mg Capsule
0.4 mg PO DAILY
cholecalciferol (vitamin D3) [Vitamin D3] 50 mcg (2,000 unit) Tablet
50 mcg PO DAILY
Eliquis 5 mg Tablet
5 mg PO BID
amoxicillin-pot clavulanate 875-125 mg Tablet
1 tab PO Q12 Qty: 7 0RF
Rx Instructions:
Last day of antibiotics is 04/22 Mon then stop
sennosides-docusate sodium [Stool Softener-Laxative] 8.6-50 mg Tablet
1 tab PO BIDPRN PRN (Reason: Constipation) Qty: 14 0RF
Saccharomyces boulardii 250 mg Capsule
250 mg PO DAILY 3 Days Qty: 3 0RF
baclofen 5 mg Tablet
5 mg PO TIDPRN PRN (Reason: neck pain muscle stiffness spasm) Qty: 20 0RF
Referrals:
NONE,* [Family Provider] -
Activity Restrictions/Additional Instructions:
You were seen in the emergency department for concern of urinary tract infection
You were found to have normal vital signs, laboratory analysis, urinalysis. Please continue to follow-up with your urologist and take your antibiotic as directed.
Please follow-up closely with your primary care physician.
Return to the emergency department for any worsening of your symptoms, difficulty passing her urine, blood in your urine, or any development of chest pain, difficulty breathing, abdominal pain with persistent vomiting and inability to tolerate food
or liquid by mouth (concern for dehydration), weakness, headache or confusion, fever greater than 100.4, or any additional symptoms that are concerning to you.
Thank you for choosing [facility].
Interventions
Interventions:
*Risk Screen - Suicide Last Done: 05/16/24 18:39
*General Assessment Last Done: 05/16/24 18:39
*Neglect/Abuse Screening Last Done: 05/16/24 18:39
ED- Fall Risk Assessment Last Done: 05/16/24 20:19
*ED COVID-19 Vaccine History Last Done: 05/16/24 20:19
ED-Male Genitourinary Assessment Last Done: 05/16/24 20:19
Discharge Date and Time
Print Language: AZERI
== END 2024-05-16 21:25 | disposition home or self-care (01) ==
LOC: EMR 18:31
PROVIDERS: Emergency Medicine; EMERGENCY PHYSICIAN Student in an Organized Health Care Education/Training Program; FAMILY PHYSICIAN Student in an Organized Health Care Education/Training Program
DX: N39.0 Urinary tract infection, site not specified (principal); R51.9 Headache, unspecified; I10 Essential (primary) hypertension; E78.00 Pure hypercholesterolemia, unspecified; J45.909 Unspecified asthma, uncomplicated; Z79.01 Long term (current) use of anticoagulants; Z86.718 Personal history of other venous thrombosis and embolism; Z87.440 Personal history of urinary (tract) infections
CPT/HCPCS: 99283; 80053; 81003; 81015; 83605; 85025; 87086

== ENCOUNTER → 2024-10-22 15:25 | Outpatient (REF) | payer MEDICARE, BC, SELFPAY | LOC: RAD 15:25 | PROVIDERS: ATTENDING PHYSICIAN Urology; FAMILY PHYSICIAN Internal Medicine | DX: N40.1 Benign prostatic hyperplasia with lower urinary tract symptoms (principal) | CPT/HCPCS: 74178; Q9967 ==

== ENCOUNTER 2024-10-23 10:58 | Outpatient (RCR) | payer MEDICARE, BC, SELFPAY | END 2024-10-23 23:59 | disposition home or self-care (01) | LOC: RPT 10:58 | PROVIDERS: ATTENDING PHYSICIAN Specialist; FAMILY PHYSICIAN Family Medicine | DX: M47.812 Spondylosis without myelopathy or radiculopathy, cervical region (principal); M96.1 Postlaminectomy syndrome, not elsewhere classified; Z73.6 Limitation of activities due to disability; M25.512 Pain in left shoulder; M62.81 Muscle weakness (generalized); M43.22 Fusion of spine, cervical region | CPT/HCPCS: 97110; 97140; 97162 ==

== ENCOUNTER 2024-11-20 06:41 | Outpatient (RCR) | payer MEDICARE, BC, SELFPAY | END 2024-11-20 23:59 | disposition home or self-care (01) | LOC: RPT 06:41 | PROVIDERS: ATTENDING PHYSICIAN Specialist; FAMILY PHYSICIAN Family Medicine | DX: M47.812 Spondylosis without myelopathy or radiculopathy, cervical region (principal); M96.1 Postlaminectomy syndrome, not elsewhere classified; Z73.6 Limitation of activities due to disability; M43.22 Fusion of spine, cervical region; M25.512 Pain in left shoulder; M62.81 Muscle weakness (generalized) | CPT/HCPCS: 97010; 97110; 97140 ==

== ENCOUNTER 2024-12-18 07:25 | Outpatient (RCR) | payer MEDICARE, BC, SELFPAY | END 2024-12-19 06:05 | disposition home or self-care (01) | LOC: RPT 07:25 | PROVIDERS: ATTENDING PHYSICIAN Specialist; FAMILY PHYSICIAN Family Medicine | DX: M47.812 Spondylosis without myelopathy or radiculopathy, cervical region (principal); M96.1 Postlaminectomy syndrome, not elsewhere classified; Z73.6 Limitation of activities due to disability; M43.22 Fusion of spine, cervical region; M62.81 Muscle weakness (generalized); M25.512 Pain in left shoulder; M54.2 Cervicalgia | CPT/HCPCS: 97110; 97140 ==